=== PATIENT | male | born 1945 | race Caucasian/White ===

== ENCOUNTER → 2021-01-02 09:17 | Outpatient (BNVA) | payer MEDICARE, OTHER, SELFPAY | PROVIDERS: Family Provider Nurse Practitioner; PCP Nurse Practitioner; Visit Provider Nurse Practitioner | DX: I10 Essential (primary) hypertension (principal) | CPT/HCPCS: 80053; 80061; 84443 ==

== ENCOUNTER → 2021-09-13 11:16 | Outpatient (BNVA) | payer MEDICARE, OTHER, SELFPAY | PROVIDERS: Family Provider Nurse Practitioner; PCP Nurse Practitioner; Visit Provider Nurse Practitioner | DX: I10 Essential (primary) hypertension (principal); J45.20 Mild intermittent asthma, uncomplicated | CPT/HCPCS: 80053; 80061 ==

== ENCOUNTER → 2022-06-06 13:56 | Outpatient (BNVA) | payer MEDICARE, OTHER, SELFPAY | PROVIDERS: Family Provider Nurse Practitioner; PCP Nurse Practitioner; Visit Provider Nurse Practitioner | DX: J45.20 Mild intermittent asthma, uncomplicated (principal); I10 Essential (primary) hypertension; E78.5 Hyperlipidemia, unspecified; Z12.5 Encounter for screening for malignant neoplasm of prostate; J98.11 Atelectasis | CPT/HCPCS: 71046; 80053; 80061; G0103 ==

== ENCOUNTER → 2022-09-20 12:02 | Outpatient (BNVA) | payer MEDICARE, OTHER, SELFPAY | PROVIDERS: Family Provider Nurse Practitioner; PCP Nurse Practitioner; Visit Provider Nurse Practitioner | DX: R39.11 Hesitancy of micturition (principal) | CPT/HCPCS: 81000 ==

== ENCOUNTER → 2022-10-02 09:30 | Outpatient (BNVA) | payer MEDICARE, OTHER, SELFPAY | PROVIDERS: Family Provider Nurse Practitioner; PCP Nurse Practitioner; Visit Provider Nurse Practitioner | DX: M54.12 Radiculopathy, cervical region (principal); M47.812 Spondylosis without myelopathy or radiculopathy, cervical region | CPT/HCPCS: 72040 ==

== ENCOUNTER → 2022-10-10 14:57 | Outpatient (BNVA) | payer MEDICARE, OTHER, SELFPAY | PROVIDERS: Family Provider Nurse Practitioner; PCP Nurse Practitioner; Visit Provider Nurse Practitioner | DX: M54.12 Radiculopathy, cervical region (principal) | CPT/HCPCS: 82607 ==

== ENCOUNTER → 2023-01-01 10:13 | Outpatient (BNVA) | payer MEDICARE, OTHER, SELFPAY | PROVIDERS: Family Provider Nurse Practitioner; PCP Nurse Practitioner; Visit Provider Nurse Practitioner | DX: J45.20 Mild intermittent asthma, uncomplicated (principal); M54.12 Radiculopathy, cervical region; R39.11 Hesitancy of micturition; I10 Essential (primary) hypertension; J45.909 Unspecified asthma, uncomplicated; E78.5 Hyperlipidemia, unspecified | CPT/HCPCS: 80053; 80061 ==

== ENCOUNTER 2023-02-17 06:07 | Emergency (ER) | payer MEDICARE, OTHER, SELFPAY ==
--- NOTE | 2023-02-17 06:13 | XRR_ITS ---
PROCEDURE INFORMATION: Exam: XR Chest Exam date and time: 02/17/2023 6:24 AM Age: 77 years old Clinical indication: Cough and dyspnea; Patient HX: Cough with dyspnea; Additional info: Dyspnea/cough TECHNIQUE: Imaging protocol: Radiologic exam of the chest. Views: 1 view. COMPARISON: CR XR chest 2V* [id number] 06/06/2022 1:55 PM FINDINGS: Lungs: Bibasilar hypoventilatory changes. Pleural spaces: No consolidation, pneumothorax, or failure. Heart/Mediastinum: Unremarkable. No cardiomegaly. Bones/joints: Unremarkable. XR/XR chest 1V portable [id number] IMPRESSION: 1. No acute findings. 2. Poor inspiratory effort.
--- NOTE | 2023-02-17 06:14 | W.ED.CHESTPA ---
HPI - Chest Pain General: Chief Complaint: Chest Pain Stated Complaint: upper abd pain/back pain, Cp Time Seen by Provider: 02/17/23 06:12 Source: patient Mode of arrival: ambulatory History of Present Illness: 77-year-old male presents emergency room planing of epigastric pain radiating into his back. He took some ibuprofen and Tums with no relief began around 10:00 last night while he was sitting. No shortness of breath no diaphoresis no nausea vomiting or diarrhea no dysuria urgency or frequency no hematemesis or coffee-ground emesis. He has a history of hypertension hyperlipidemia no history of any known coronary disease no previous angiograms stress test or echocardiograms. MD complaint: chest pain and other (Abdominal pain) Timing of current episode: episodic Onset: during rest Pain location: epigastric Pain radiation: back Quality: aching Relieving factors: nothing Exacerbating factors: nothing Associated symptoms: Reports abdominal pain; Deny diaphoresis, dyspnea, fever(s), leg edema, nausea, palpitations, sense of impending doom, syncope or vomiting Treatment prior to arrival: other (Ibuprofen Tums) Review of Systems Const: Denies: fever(s), chills, fatigue, malaise or diaphoresis Card: Denies: chest pain, palpitations or syncope Resp: Denies: dyspnea GI: Reports: abdominal pain; Denies: nausea or vomiting : Denies: dysuria, urinary frequency or urinary urgency Musc: Denies: neck pain or back pain Skin/Breast: Denies: rash Neuro: Reports: headache(s) [facility] ED PFSH: Medical History Obesity (BMI 30-39.9) Asthma Essential (primary) hypertension Hyperlipidemia, unspecified Surgical History History of sinus surgery Family History Mother Cancer Hypertension Father Cancer Hypertension Grandfather Diabetes Denies family history of Chronic kidney disease (CKD) Bleeding disorder Stroke Social History Smoking and tobacco/nicotine status: former use of tobacco/nicotine Second hand smoke exposure: No Alcohol intake: never Substance/Drug Use: never Adopted: No Caregiver/support person: No Lives independently: Yes Household members: spouse Housing: Manufactured/Mobile home Marital status: Number of children: 0 Highest education level completed: 8th Grade service: No Current occupational status: retired Current occupational exposures/hazards: No Do you think of yourself as: Straight/Heterosexual Current gender identity: Male Physical Exam Const: COMMON NORMALS: no acute distress GENERAL APPEARANCE: cooperative and comfortable ORIENTATION/CONSCIOUSNESS: Yes awake, Yes oriented to person, Yes oriented to place and Yes oriented to time HENMT: COMMON NORMALS: normocephalic, atraumatic and hearing grossly normal bilaterally HEAD & SCALP: normocephalic and atraumatic Resp: COMMON NORMALS: normal respiratory effort, No retractions, No use of accessory muscles and clear to auscultation bilaterally AUSCULTATION: clear to auscultation bilaterally Cardio: COMMON NORMALS: regular rate, regular rhythm and No murmurs present (Cardio) RATE: regular rate RHYTHM: regular rhythm GI: COMMON NORMALS: Soft to palpation and No hepatosplenomegaly present AUSCULTATION: Yes normoactive bowel sounds PALPATION: Yes Soft to palpation, No Tenderness to palpation present (GI), No Guarding due to palpation present (GI) and Yes No hepatosplenomegaly present Extremity: COMMON NORMALS: normal to inspection, capillary refill normal, no clubbing, cyanosis or edema, no calf tenderness and no pedal edema Neuro: SENSORIUM/ORIENTATION: Yes oriented to person, Yes oriented to place and Yes oriented to time Skin: COMMON NORMALS: no rashes or lesions noted GENERAL SKIN EXAM: no rashes or lesions noted Course Vital Signs: Vital signs: Vital Signs Temperature 97 F L 02/17/23 06:15 Pulse Rate 63 02/17/23 09:30 Respiratory Rate 12 02/17/23 09:30 Blood Pressure 133/60 02/17/23 09:30 Pulse Oximetry 97 02/17/23 09:30 Oxygen Delivery Me thod Room Air 02/17/23 08:05 MDM - Chest Pain Medical Decision Making EKG does not show any acute changes troponin trending normal. Patient given GI cocktail discharged home with Protonix twice daily for 10 days and then daily Carafate as needed follow-up with primary care return for any worsening symptoms also given GI diet. Medical Records I reviewed the patient's medical records. Lab Data I reviewed the patient's lab results. 02/17/23 06:20 02/17/23 06:20 Radiology Impressions Chest X-Ray 02/17/23 06:13 IMPRESSION: 1. No acute findings. 2. Poor inspiratory effort. Laboratory Results WBC 11.03 10^3/uL (3.29-11.43) 02/17/23 06:20 RBC 4.59 10^6/uL (3.85-5.65) 02/17/23 06:20 Hgb 13.40 g/dL (11.27-16.99) 02/17/23 06:20 Hct 40.5 % (37-53) 02/17/23 06:20 MCV 88.2 fl (82-101) 02/17/23 06:20 MCH 29.2 pg (27-33) 02/17/23 06:20 MCHC 33.1 g/dL (30-55) 02/17/23 06:20 RDW 12.6 % (12.1-15.1) 02/17/23 06:20 Plt Count 272 10^3/cmm (157-399) 02/17/23 06:20 MPV 10.0 fL (7.4-10.4) 02/17/23 06:20 Neut % (Auto) 81.9 % 02/17/23 06:20 Lymph % (Auto) 13.9 % 02/17/23 06:20 [place] % (Auto) 2.8 % 02/17/23 06:20 Eos % (Auto) 0.5 % 02/17/23 06:20 Baso % (Auto) 0.5 % 02/17/23 06:20 Neut # (Auto) 9.05 10^3/uL (1.8-7.7) H 02/17/23 06:20 Lymph # (Auto) 1.5 10^3/uL (0.8-4.8) 02/17/23 06:20 [place] # (Auto) 0.3 10^3/uL (0.2-0.9) 02/17/23 06:20 Eos # (Auto) 0.1 10^3/uL (0.0-0.8) 02/17/23 06:20 Baso # (Auto) 0.1 10^3/uL (0.0-0.1) 02/17/23 06:20 Nucleated RBC % (auto) 0 % 02/17/23 06:20 Nucleated RBCs # 0.0 /100WBC 02/17/23 06:20 Sodium 134 mmol/L (136-145) L 02/17/23 06:20 Potassium 4.1 mmol/L (3.5-5.1) 02/17/23 06:20 Chloride 95 mmol/L (98-107) L 02/17/23 06:20 Carbon Dioxide 30 mmol/L (22-29) H 02/17/23 06:20 Anion Gap 13.1 (5-19) 02/17/23 06:20 BUN 12 mg/dL (8-23) 02/17/23 06:20 Creatinine 0.8 mg/dL (0.7-1.2) 02/17/23 06:20 GFR Calculation Not Reportable 02/17/23 06:20 Glucose 204 mg/dL (65-115) H 02/17/23 06:20 Calculated Osmolality 284 mOsm/kg (285-295) L 02/17/23 06:20 Calcium 9.7 mg/dL (8.5-10.5) 02/17/23 06:20 Total Bilirubin 0.3 mg/dL (0.15-1.2) 02/17/23 06:20 AST 17 U/L (0-40) 02/17/23 06:20 ALT 15 U/L (0-41) 02/17/23 06:20 Alkaline Phosphatase 77 U/L (40-130) 02/17/23 06:20 Troponin T Baseline 17 ng/L (0-15) H 02/17/23 06:20 Troponin T 120 Minute 16.91 ng/L (0-15) H 02/17/23 08:17 Delta Troponin T -0.09 ABS# (0-10) L 02/17/23 08:17 Total Protein 7.9 g/dL (6.6-8.7) 02/17/23 06:20 Albumin 4.2 g/dL (3.5-5.2) 02/17/23 06:20 Globulin 3.7 g/dL (1.3-4.6) 02/17/23 06:20 Lipase 20 U/L (13-60) 02/17/23 06:20 Urine Color Yellow (Yellow) 02/17/23 08:14 Urine Appearance Clear (CLEAR) 02/17/23 08:14 Urine pH 7 (5-7) 02/17/23 08:14 Ur Specific [place] 1.010 (1.005-1.030) 02/17/23 08:14 Urine Protein Neg (Negative) 02/17/23 08:14 Urine Glucose (UA) 4+ (Normal) H 02/17/23 08:14 Urine Ketones 1+ (Negative) H 02/17/23 08:14 Urine Blood Neg (Negative) 02/17/23 08:14 Urine Nitrate Negative (Negative) 02/17/23 08:14 Urine Bilirubin Neg (Negative) 02/17/23 08:14 Urine Urobilinogen Norm mg/dL (Negative) 02/17/23 08:14 Ur Leukocyte Esterase Negative (Negative) 02/17/23 08:14 All radiology interpretation(s) finalized by discharge Discharge Plan Discharge Patient Disposition: Home Clinical Impression: Abdominal pain, Chest pain due to GERD Condition: Stable Prescriptions: New Protonix 40 mg tablet,delayed release (DR/EC) 40 mg PO BID 10 Days Qty: 40 0RF Rx Instructions: Twice daily for 10 days then daily Carafate 1 gram tablet 1 g PO Q6H PRN (Reason: Epigastric discomfort/reflux) 28 Days Qty: 112 0RF No Action albuterol sulfate [Ventolin HFA] 90 mcg/actuation HFA aerosol inhaler 2 inh INHALATION QID PRN (Reason: shortness of breath or wheezing) 30 Days Qty: 18 5RF duloxetine [Cymbalta] 30 mg capsule,delayed release(DR/EC) 30 mg PO BID Qty: 60 5RF tamsulosin [Flomax] 0.4 mg capsule 0.4 mg PO .at supper Qty: 30 5RF valsartan [Diovan] 80 mg tablet 80 mg PO DAILY Qty: 30 5RF rosuvastatin [Crestor] 20 mg tablet 20 mg PO DAILY Qty: 90 0RF Arnuity Ellipta 100 mcg/actuation blister with device 1 inh inhalation Q24H Qty: 30 5RF Discharge Orders: Discharge ED (Routine); Ordered 02/17/23 Ordered By: Fish Felipe Referrals: Lana Bay, TRAVEL ADMINISTRATOR-C [Primary Care Provider] - Discharge Activity: Resume usual activity Patient Instructions: Diet for Stomach Ulcers and Gastritis (ED), GERD (Gastroesophageal Reflux Disease) (ED), Abdominal Pain (ED), Opioid Safety, Pain Management Coding Level of Care Code ED Crusher Screen Repairer for Mckenzie Johnson
[2023-02-17 06:15] VITALS: BP 158/82; PULSE 64; RESP 22; TEMP 36.1; O2SAT 97
[2023-02-17 06:31] LABS: Basophils # 0.1 10^3/uL (0.0-0.1); Basophils % 0.5 %; Eosinophils # 0.1 10^3/uL (0.0-0.8); Eosinophils % 0.5 %; Hematocrit 40.5 % (37-53); Lymphocytes # 1.5 10^3/uL (0.8-4.8); Lymphocytes % 13.9 %; Mean Corpuscular HGB Conc 33.1 g/dL (30-55); Mean Corpuscular Hemoglobin 29.2 pg (27-33); Mean Corpuscular Volume 88.2 fl (82-101); Monocytes # 0.3 10^3/uL (0.2-0.9); Monocytes % 2.8 %; Neutrophils # 9.05 10^3/uL (1.8-7.7); Neutrophils % 81.9 %; Nucleated Red Blood Cells % 0 %; Platelet Count 272 10^3/cmm (157-399); Red Blood Count 4.59 10^6/uL (3.85-5.65); Red Cell Distribution Width 12.6 % (12.1-15.1); White Blood Count 11.03 10^3/uL (3.29-11.43)
[2023-02-17] MEDS: ondansetron 2 mg/ML SDV 2 mL 4 MG IVP (06:46)
[2023-02-17 06:50] VITALS: BP 141/77; PULSE 51; RESP 14; O2SAT 97
[2023-02-17 06:54] LABS: Alanine Aminotransferase 15 U/L (0-41); Albumin Level 4.2 g/dL (3.5-5.2); Alkaline Phosphatase 77 U/L (40-130); Anion Gap 13.1 (5-19); Aspartate Amino Transferase 17 U/L (0-40); Blood Urea Nitrogen 12 mg/dL (8-23); Calcium 9.7 mg/dL (8.5-10.5); Carbon Dioxide 30 mmol/L (22-29); Chloride 95 mmol/L (98-107); Globulin 3.7 g/dL (1.3-4.6); Glucose 204 mg/dL (65-115); Lipase 20 U/L (13-60); Osmolality Calculated 284 mOsm/kg (285-295); Potassium 4.1 mmol/L (3.5-5.1); Sodium 134 mmol/L (136-145); Total Bilirubin 0.3 mg/dL (0.15-1.2); Total Protein 7.9 g/dL (6.6-8.7)
[2023-02-17 06:56] LABS: Troponin(5th) Baseline 17 ng/L (0-15)
[2023-02-17 08:05] VITALS: BP 138/78; PULSE 54; RESP 16; O2SAT 95
--- NOTE | 2023-02-17 08:13 | ECG_ITS ---
[facility] Test Date: 2023-02-17 Pat Name: Quentin Moore Department: Room: Gender: Male Bottoming Room Supervisor: : 1945 Requested By: Fish Muller Order Number: [id number] Gladys MD: Jean Flores M.D. Measurements Intervals [place] Rate: 53 P: 68 [place]: 178 QRS: 46 QRSD: 104 T: 38 QT: 401 QTc: 379 Interpretive Statements SINUS BRADYCARDIA WITH SINUS ARRHYTHMIA Compared to ECG 02/16/2014 21:19:06 Sinus tachycardia no longer present Electronically Signed On 02-17-2023 15:58:59 TIMBER MANAGEMENT TECHNICIAN by Jean Flores M.D. [id number]
[2023-02-17 08:23] LABS: Add Urine Microscopic? NO; Charge for UA Resulting for Rev
[2023-02-17 08:57] LABS: Troponin 5 2HR 16.91 ng/L (0-15)
[2023-02-17 09:30] VITALS: BP 133/60; PULSE 63; RESP 12; O2SAT 97
[2023-02-17 09:36] LABS: Troponin 5 2HR Delta -0.09 ABS# (0-10)
[2023-02-17 10:53] LABS: Bilirubin Urine Neg (Negative); Blood Urine Neg (Negative); Glucose Urine UA 4+ (Normal); Ketones Urine 1+ (Negative); Leukocyte Esterase Urine Negative (Negative); Nitrate Urine Negative (Negative); Protein Urine Neg (Negative); Urine Appearance Clear (CLEAR); Urine Color Yellow (Yellow); Urobilinogen Urine Norm (Negative); pH Urine 7 (5-7)
== END 2023-02-17 11:20 | disposition home or self-care (01) ==
PROVIDERS: Emergency Provider Family Medicine; PCP Nurse Practitioner
DX: K21.9 Gastro-esophageal reflux disease without esophagitis (principal); R10.13 Epigastric pain; Z87.891 Personal history of nicotine dependence; I10 Essential (primary) hypertension; E78.5 Hyperlipidemia, unspecified
CPT/HCPCS: 36415; 71045; 80053; 81003; 83690; 84484; 85025; 93005; 96374; 99285; J2405

== ENCOUNTER → 2023-06-18 09:10 | Outpatient (BNVA) | payer MEDICARE, OTHER, SELFPAY | PROVIDERS: PCP Nurse Practitioner; Visit Provider Nurse Practitioner | DX: J45.20 Mild intermittent asthma, uncomplicated (principal); E78.5 Hyperlipidemia, unspecified; R39.11 Hesitancy of micturition; I10 Essential (primary) hypertension; M54.12 Radiculopathy, cervical region; N64.4 Mastodynia; N63.10 Unspecified lump in the right breast, unspecified quadrant | CPT/HCPCS: 80053; 80061; 85025 ==

== ENCOUNTER 2023-07-14 14:39 | Outpatient (CLI) | payer MEDICARE, OTHER, SELFPAY ==
--- NOTE | 2023-07-14 15:00 | MM_ITS ---
WS: [id number] BILATERAL 3D TOMOSYNTHESIS DIGITAL DIAGNOSTIC MAMMOGRAPHY WITH CAD CLINICAL INFORMATION: N64.4 - Mastodynia HISTORY: RIGHT breast pain and prior trauma. COMPARISON: None. TECHNIQUE: Bilateral CC, MLO, and ML views. FINDINGS: Scattered fibroglandular densities bilaterally. Asymmetric increased parenchymal tissue RIGHT breast subareolar and deep to the palpable marker. Ultrasound of this area is pending. Bilateral incidental punctate calcifications. Normal LEFT breast. ULTRASOUND BREAST RIGHT TECHNIQUE: Ultrasound right breast focused area of concern. CLINICAL INFORMATION: N64.4 - Mastodynia FINDINGS: Ultrasound RIGHT breast in the area of concern. At the 10 o'clock position, 2 cm from the nipple, the re is prominent fibrofatty tissue suspicious for lipoma. This measures approximately 3.9 x 2.7 cm in the area of palpable abnormality. This has a benign appearance. No focal shadowing nodule or lesion. No suspicious lesions to target for biopsy. Prominent parenchyma l tissue deep to the areola compatible with gynecomastia. Comparison LEFT breast is normal. MM/[place] [id number] IMPRESSION: BI-RADS: 2-Benign FOLLOW UP: See Report If persistent patient or clinical concern, patient can return for follow-up im aging and/or biopsy.
--- NOTE | 2023-07-14 15:30 | US_ITS ---
WS: [id number] BILATERAL 3D TOMOSYNTHESIS DIGITAL DIAGNOSTIC MAMMOGRAPHY WITH CAD CLINICAL INFORMATION: N64.4 - Mastodynia HISTORY: RIGHT breast pain and prior trauma. COMPARISON: None. TECHNIQUE: Bilateral CC, MLO, and ML views. FINDINGS: Scattered fibroglandular densities bilaterally. Asymmetric increased parenchymal tissue RIGHT breast subareolar and deep to the palpable marker. Ultrasound of this area is pending. Bilateral incidental punctate calcifications. Normal LEFT breast. ULTRASOUND BREAST RIGHT TECHNIQUE: Ultrasound right breast focused area of concern. CLINICAL INFORMATION: N64.4 - Mastodynia FINDINGS: Ultrasound RIGHT breast in the area of concern. At the 10 o'clock position, 2 cm from the nipple, the re is prominent fibrofatty tissue suspicious for lipoma. This measures approximately 3.9 x 2.7 cm in the area of palpable abnormality. This has a benign appearance. No focal shadowing nodule or lesion. No suspicious lesions to target for biopsy. Prominent parenchyma l tissue deep to the areola compatible with gynecomastia. Comparison LEFT breast is normal. US/US breast RT limited* [id number] IMPRESSION: BI-RADS: 2-Benign FOLLOW UP: See Report If persistent patient or clinical concern, patient can return for follow-up im aging and/or biopsy.
== END 2023-07-14 14:40 | disposition home or self-care (01) ==
LOC: RAD 14:39
PROVIDERS: PCP Nurse Practitioner; Visit Provider Nurse Practitioner
DX: N64.4 Mastodynia (principal); N63.10 Unspecified lump in the right breast, unspecified quadrant; R92.323 Mammographic fibroglandular density, bilateral breasts; R92.311 Mammographic fatty tissue density, right breast
CPT/HCPCS: 76642; 77062; G0279

== ENCOUNTER 2023-09-01 14:34 | Outpatient (CLI) | payer MEDICARE, OTHER, SELFPAY ==
--- NOTE | 2023-09-01 15:00 | CTR_ITS ---
PROCEDURE INFORMATION: Exam: CT Abdomen And Pelvis Without Contrast Exam date and time: 09/01/2023 4:01 PM Age: 78 years old Clinical indication: Abdominal pain; Patient HX: Epigastric pain into back after eating spicy foods x 3-4 months; Additional info: R10.9 - unspecified abdominal pain TECHNIQUE: Imaging protocol: Computed tomography of the abdomen and pelvis without contrast. Radiation optimization: All CT scans at this facility use at least one of these dose optimization techniques: automated exposure control; mA and/or kV adjustment per patient size (includes targeted exams where dose is matched to clinical indication); or iterative reconstruction. COMPARISON: CR XR chest 1V portable [id number] 02/17/2023 6:24 AM RADIATION DOSE METRICS: Total DLP (mGy-cm): 678.67 FINDINGS: Lungs: There are focal areas of bronchiectasis within the right middle lobe and right lower lobe with dense consolidation within the right middle lobe and mild right lower lobe reticulonodular infiltrates and peribronchial thickening. There is a focal nodular area within the left lower lobe which contains areas of soft tissue density fat and calcification. This lesion measures 2.9 x 2.1 cm. There is dense consolidation distal to the lesion within the medial left lower lobe Diaphragm: There is a moderate-sized hiatal hernia. Liver: Normal. No mass. Gallbladder and biliary ducts: There are several partially calcified stones within the gallbladder. The gallbladder is nondistended. There is no significant biliary ductal dilatation. Pancreas: Normal. No ductal dilation. Spleen: Normal. No splenomegaly. Adrenal glands: Normal. No mass. Kidneys and ureters: Normal. No hydronephrosis. Stomach and bowel: There is colonic diverticulosis without evidence of acute diverticulitis. Mild retained fecal material is noted within the colon. Appendix: No evidence of appendicitis. Intraperitoneal space: Unremarkable. No free air. No significant fluid collection. Vasculature: Unremarkable. No abdominal aortic aneurysm. Lymph nodes: Unremarkable. No enlarged lymph nodes. Urinary bladder: The bladder wall is thickened however the bladder is incompletely distended. Reproductive: Unremarkable as visualized. Bones/joints: There are moderate degenerative changes of the lumbar spine with mild right convexity lumbar scoliosis. Soft tissues: Unremarkable. CT/CT abdomen pelvis wo con [id number] IMPRESSION: 1. Cholelithiasis without gallbladder distension or biliary ductal dilatation. 2. Mild diffuse bladder wall thickening, likely in part owing to incomplete distension. Clinical and laboratory correlation is suggested to exclude cystitis. 3. Moderate-sized hiatal hernia. 4. Reticulonodular infiltrates and peribronchial thickening within the right lower lobe, suspicious for pneumonia 5. Heterogeneous nodule containing areas of fat and calcification within the left lower lobe suspicious for a pulmonary hamartoma . 6. Mild bronchiectatic changes within the right middle lobe and bilateral lower lobes with dense consolidation within the right middle lobe which may be owing to chronic infection and/or scarring
[2023-09-01] MEDS: iohexol 350 mg/mL 500 mL Btl (per mL) PO (15:55)
== END 2023-09-01 14:35 | disposition home or self-care (01) ==
LOC: RAD 14:37
PROVIDERS: PCP Nurse Practitioner; Visit Provider Nurse Practitioner
DX: K80.20 Calculus of gallbladder without cholecystitis without obstruction (principal); R10.9 Unspecified abdominal pain; K44.9 Diaphragmatic hernia without obstruction or gangrene; J98.09 Other diseases of bronchus, not elsewhere classified; R91.1 Solitary pulmonary nodule
CPT/HCPCS: 74176; Q9967

== ENCOUNTER → 2023-12-03 08:35 | Outpatient (BNVA) | payer MEDICARE, OTHER, SELFPAY | PROVIDERS: PCP Nurse Practitioner; Visit Provider Nurse Practitioner | DX: I10 Essential (primary) hypertension (principal); E78.5 Hyperlipidemia, unspecified; Z12.5 Encounter for screening for malignant neoplasm of prostate; E78.2 Mixed hyperlipidemia | CPT/HCPCS: 80053; 80061; 84443; G0103 ==

== ENCOUNTER → 2024-05-19 08:32 | Outpatient (BNVA) | payer MEDICARE, OTHER, SELFPAY | PROVIDERS: PCP Nurse Practitioner; Visit Provider Nurse Practitioner | DX: I10 Essential (primary) hypertension (principal) | CPT/HCPCS: 80053; 80061 ==

== ENCOUNTER → 2024-11-25 08:53 | Outpatient (BNVA) | payer MEDICARE, OTHER, SELFPAY | PROVIDERS: PCP Nurse Practitioner; Visit Provider Nurse Practitioner | DX: I10 Essential (primary) hypertension (principal) | CPT/HCPCS: 80053; 80061 ==